=== PATIENT | female | born 1960 | race Hispanic/Latino ===

== ENCOUNTER 2017-10-10 12:18 | Emergency (ER) | payer SELFPAY ==
[2017-10-10] MEDS ORDERED: DIPHENHYDRAMINE 50 MG/ML VIAL ONE (14:23)
[2017-10-10] MEDS ORDERED: DEXAMETHASONE 10 MG/ML VIAL ONE (14:23)
[2017-10-10] MEDS ORDERED: NA CHLORIDE 0.9% 1,000 ML ONE (14:24)
--- NOTE | 2017-10-10 14:29 | RAD REPORT ---
EXAM DESCRIPTION: CT - Head Brain Wo Cont - 10/10/2017 2:21 pm CLINICAL HISTORY: Headache, right ear pain COMPARISON: None. TECHNIQUE: All CT scans are performed using dose optimization technique as appropriate and may inclu de automated exposure control or mA/KV adjustment according to patient size. FINDINGS: No intracranial hemorrhage, hydrocephalus or extra-axial fluid collection.Mild frontal bra in atrophy.No areas of brain edema or evidence of midline shift. The paranasal sinuses and mastoids are clear. The calvarium is intact. IMPRESSION: No acute intracranial abnormality.
[2017-10-10] MEDS ORDERED: METOCLOPRAMIDE 10 MG/2mL INJ ONE (15:07)
--- NOTE | 2017-10-10 15:39 | ER ---
Nurse's Notes [facility] Name: Denise Kiser Age: 57 yrs Sex: Female : 1960 Arrival Date: 10/10/2017 Time: 12:18 Bed 6 Private MD: Diagnosis: Headache;Nausea and vomiting;Otalgia, right ear Presentation: 10/10 12:48 Presenting complaint: Patient states: N/V, headache, and right ear pain since last hb night. Transition of care: patient was not received from another setting of care. Onset of symptoms was October 09, 2017. Care prior to arrival: None. 12:48 Method Of Arrival: Ambulatory 12:48 Acuity: LEONOR 3 hb Triage Assessment: 12:51 Headache History: The patient has had previous headaches and this one is similar to previous episodes. General: Appears in no apparent distress. uncomfortable, Behavior is calm, cooperative. Pain: Pain currently is 9 out of 10 on a pain scale. Pain began suddenly, 1 day ago. Also complains of nausea. Neuro: Level of Consciousness is awake, alert, obeys commands, Oriented to person, place, time, situation. Cardiovascular: Capillary refill < 3 seconds. Respiratory: Airway is patent Respiratory effort is even, unlabored, Respiratory pattern is regular, symmetrical. Historical: - Allergies: 12:50 No Known Allergies; hb - Home Meds: 12:50 None [Active]; hb - PMHx: 12:50 None; hb - PSHx: 12:50 None; hb - Immunization history:: Adult Immunizations up to date. - Social history:: Smoking status: Patient/guardian denies using tobacco. Screenin:14 Abuse screen: Denies threats or abuse. Nutritional screening: No deficits noted. la1 Tuberculosis screening: No symptoms or risk factors identified. Fall Risk None identified. Assessment: 14:13 General: Appears in no apparent distress. Behavior is calm, cooperative. Pain: la1 Complains of pain in scalp. Neuro: Level of Consciousness is awake, alert, obeys commands, Speech is normal, Facial symmetry appears normal. Cardiovascular: Capillary refill < 3 seconds Patient's skin is warm and dry. Respiratory: Airway is patent Respiratory effort is even, unlabored, Respiratory pattern is regular, symmetrical. GI: No signs and/or symptoms were reported involving the gastrointestinal system. Vital Signs: 12:50 BP 116 / 75; Pulse 61; Resp 16; Temp 98; Pulse Ox 99% on R/A; Pain 9/10; hb ED Course: 12:18 Patient arrived in ED. as 12:49 Triage completed. hb 12:50 Arm band placed on left wrist. hb 13:15 Darrell Wilder RN is Primary Nurse. la1 13:17 Florian Alvarez NP is PHCP. pm1 13:17 Maurilio Sánchez MD is Attending Physician. pm1 14:13 No provider procedures requiring assistance completed. Inserted saline lock: 22 gauge la1 in right antecubital area, using aseptic technique. 14:14 Call light in reach. Side rails up X 1. la1 14:21 CT completed. Patient moved to CT via wheelchair. Patient moved back from CT. jg1 14:21 CT Head Brain wo Cont In Process Unspecified. EDMS 16:10 IV discontinued, intact, bleeding controlled, No redness/swelling at site. Pressure ss dressing applied. Administered Medications: 14:12 Drug: NS 0.9% 1000 ml Route: IV; Rate: 1000 ml; Site: right antecubital; la1 15:49 Follow up: IV Status: Completed infusion la1 14:12 Drug: Decadron - Dexamethasone 10 mg Route: IVP; Site: right antecubital; la1 15:49 Follow up: Response: No adverse reaction la1 14:12 Drug: Benadryl 25 mg Route: IVP; Site: right antecubital; la1 15:49 Follow up: Response: No adverse reaction la1 15:05 Drug: Reglan 10 mg Route: IVP; Site: right antecubital; ss 15:49 Follow up: Response: No adverse reaction la1 Outcome: 15:38 Discharge ordered by MD. pm1 16:09 Discharged to home via wheelchair, with friend. ss 16:09 Condition: good 16:09 Discharge instructions given to patient, Instructed on discharge instructions, follow up and referral plans. medication usage, Demonstrated understanding of instructions, follow-up care, medications, Prescriptions given X 2. 16:12 Patient left the ED. ss Signatures: Dispatcher [employer] EDDC Enedina Cheung j Yudi Champagne Shelby, RN RN Darrell Wilder RN RN la1 Florian Alvarez [employer]OUNDER AND PRESIDENT [employer] AND PRESIDENT pm1 Micheline Barros, RN RN hb
--- NOTE | 2017-10-10 15:39 | EDPHYS ---
Physician Documentation [facility] Name: Denise Kiser Age: 57 yrs Sex: Female : 1960 Arrival Date: 10/10/2017 Time: 12:18 Bed 6 Private MD: ED Physician Maurilio Sánchez HPI: 10/10 15:00 This 57 yrs old Female presents to ER via Ambulatory with complaints of pm1 Headache, Nausea/Vomiting. 15:00 The patient complains of pain to the forehead. The patient describes the headache as pm1 aching. 15:00 Onset: The symptoms/episode began/occurred last night. Associated signs and symptoms: pm1 Pertinent positives: nausea, vomiting, Pertinent negatives: neck stiffness, weakness. Severity of symptoms: in the emergency department the pain is actually worse. Headache History: The patient has had previous headaches and this one is similar to previous episodes. The symptoms are alleviated by nothing. the symptoms are aggravated by nothing. The patient has experienced similar episodes in the past, multiple times. The patient has not recently seen a physician. Historical: - Allergies: 12:50 No Known Allergies; hb - Home Meds: 12:50 None [Active]; hb - PMHx: 12:50 None; hb - PSHx: 12:50 None; hb - Immunization history:: Adult Immunizations up to date. - Social history:: Smoking status: Patient/guardian denies using tobacco. ROS: 15:00 Constitutional: Negative for fever, chills, and weight loss, Eyes: Negative for injury, pm1 pain, redness, and discharge, ENT: Negative for injury, pain, and discharge, Neck: Negative for injury, pain, and swelling, Cardiovascular: Negative for chest pain, palpitations, and edema, Respiratory: Negative for shortness of breath, cough, wheezing, and pleuritic chest pain, Abdomen/GI: Negative for abdominal pain, nausea, vomiting, diarrhea, and constipation, Back: Negative for injury and pain, MS/Extremity: Negative for injury and deformity, Skin: Negative for injury, rash, and discoloration. 15:00 Neuro: Positive for headache, Negative for numbness, tingling, weakness. Exam: 15:00 Constitutional: This is a well developed, well nourished patient who is awake, alert, pm1 and in no acute distress. Head/Face: Normocephalic, atraumatic. Eyes: Pupils equal round and reactive to light, extra-ocular motions intact. Lids and lashes normal. Conjunctiva and sclera are non-icteric and not injected. Cornea within normal limits. Periorbital areas with no swelling, redness, or edema. ENT: Nares patent. No nasal discharge, no septal abnormalities noted. Tympanic membranes are normal and external auditory canals are clear. Oropharynx with no redness, swelling, or masses, exudates, or evidence of obstruction, uvula midline. Mucous membranes moist. Neck: Trachea midline, no thyromegaly or masses palpated, and no cervical lymphadenopathy. Supple, full range of motion without nuchal rigidity, or vertebral point tenderness. No Meningismus. Chest/axilla: Normal chest wall appearance and motion. Nontender with no deformity. No lesions are appreciated. Cardiovascular: Regular rate and rhythm with a normal S1 and S2. No gallops, murmurs, or rubs. Normal PMI, no JVD. No pulse deficits. Respiratory: Lungs have equal breath sounds bilaterally, clear to auscultation and percussion. No rales, rhonchi or wheezes noted. No increased work of breathing, no retractions or nasal flaring. Abdomen/GI: Soft, non-tender, with normal bowel sounds. No distension or tympany. No guarding or rebound. No evidence of tenderness throughout. Back: No spinal tenderness. No costovertebral tenderness. Full range of motion. Skin: Warm, dry with normal turgor. Normal color with no rashes, no lesions, and no evidence of cellulitis. MS/ Extremity: Pulses equal, no cyanosis. Neurovascular intact. Full, normal range of motion. 15:00 Neuro: Orientation: is normal, Mentation: is normal, Cranial nerves: CN II- XII are normal as tested, Cerebellar function: normal finger to nose testing, Motor: moves all fours, strength is normal, strength is 5/5 in all extremities, Sensation: is normal, no obvious gross deficits, Gait: is steady, at a normal pace, without difficulty. Vital Signs: 12:50 BP 116 / 75; Pulse 61; Resp 16; Temp 98; Pulse Ox 99% on R/A; Pain 9/10; hb MDM: 13:18 Patient medically screened. pm1 15:38 Data reviewed: vital signs. Data interpreted: Pulse oximetry: on room air is 99 %. pm1 Interpretation: normal. Counseling: I had a detailed discussion with the patient and/or guardian regarding: the historical points, exam findings, and any diagnostic results supporting the discharge/admit diagnosis, radiology results, the need for outpatient follow up, to return to the emergency department if symptoms worsen or persist or if there are any questions or concerns that arise at home. 10/10 14:48 Order name: Urine Dipstick--Ancillary (enter results); Complete Time: 15:52 bd 10/10 13:48 Order name: CT Head Brain wo Cont; Complete Time: 14:31 pm1 10/10 13:48 Order name: Urine Dipstick-Ancillary (obtain specimen); Complete Time: 14:50 pm1 10/10 13:48 Order name: Urine Test (obtain specimen); Complete Time: 14:50 pm1 Administered Medications: 14:12 Drug: NS 0.9% 1000 ml Route: IV; Rate: 1000 ml; Site: right antecubital; la1 15:49 Follow up: IV Status: Completed infusion la1 14:12 Drug: Decadron - Dexamethasone 10 mg Route: IVP; Site: right antecubital; la1 15:49 Follow up: Response: No adverse reaction la1 14:12 Drug: Benadryl 25 mg Route: IVP; Site: right antecubital; la1 15:49 Follow up: Response: No adverse reaction la1 15:05 Drug: Reglan 10 mg Route: IVP; Site: right antecubital; ss 15:49 Follow up: Response: No adverse reaction la1 Disposition: 18:40 Co-signature as Attending Physician, Maurilio Sánchez MD. rn Disposition: 10/10/17 15:38 Discharged to Home. Impression: Headache, Nausea and vomiting, Otalgia, right ear. - Condition is Stable. - Discharge Instructions: General Headache Without Cause, Nausea and Vomiting, Earache. - Prescriptions for Fiorinal 50- 325-40 mg Oral Capsule - take 1 capsule by ORAL route every 4 hours As needed - not to exceed 6 capsules per day; 20 capsule. Zofran 4 mg Oral Tablet - take 1 tablet by ORAL route every 8 hours As needed; 20 tablet. - Medication Reconciliation Form, Thank You Letter, Prescription Opioid Use form. - Follow up: Emergency Department; When: As needed; Reason: Worsening of condition. Follow up: Private Physician; When: 2 - 3 days; Reason: Recheck today's complaints, Continuance of care, Re-evaluation by your physician. - Problem is new. - Symptoms have improved. Signatures: Dispatcher [employer] EDMS Maurilio Sánchez MD MD rn Smirch, Shelby, RN RN ss Darrell Wilder RN RN la1 Florian Alvarez, RADHA [employer] pm1 Micheline Barros RN RN hb
[2017-10-10 15:40] LABS: Urine Blood 2+ (NEG); Urine Glucose NEGATIVE (NEG); Urine Protein NEGATIVE (NEG); Urine pH 6.5 (5.0-7.0)
[2017-10-10] MEDS ORDERED: LIDOCAINE 1% MPF 5 ML VIAL ONE (17:37)
== END 2017-10-10 16:12 | disposition home or self-care (01) ==
LOC: ER 12:18
DX: R11.2 Nausea with vomiting, unspecified (principal); H92.01 Otalgia, right ear
CPT/HCPCS: 70450; 81003; 96361; 96374; 96375; 99284; J1100; J2765; J7030

== ENCOUNTER 2017-12-01 20:51 | Emergency (ER) | payer SELFPAY ==
[2017-12-01] MEDS ORDERED: DIPHENHYDRAMINE 50 MG/ML VIAL ONE (22:30)
[2017-12-01] MEDS ORDERED: METOCLOPRAMIDE 10 MG/2mL INJ ONE (22:30)
[2017-12-01] MEDS ORDERED: KETOROLAC 30 MG/ML INJ ONE (22:31)
[2017-12-01] MEDS ORDERED: NA CHLORIDE 0.9% 1,000 ML ONE (22:31)
--- NOTE | 2017-12-01 23:56 | ER ---
Nurse's Notes [facility] Name: Denise Kiser Age: 57 yrs Sex: Female : 1960 Arrival Date: 12/01/2017 Time: 20:55 Bed 26 Private MD: Diagnosis: Migraine Presentation: 12/01 21:03 Presenting complaint: Patient states: Migraine x2 days, N/V; Patient unable to lp1 concentrate. Transition of care: patient was not received from another setting of care. Onset of symptoms was November 29, 2017. Risk Assessment: Do you want to hurt yourself or someone else? Patient reports no desire to harm self or others. Initial Sepsis Screen: Does the patient meet any 2 criteria? No. Patient's initial sepsis screen is negative. Does the patient have a suspected source of infection? No. Patient's initial sepsis screen is negative. Care prior to arrival: None. 21:03 Method Of Arrival: Ambulatory lp1 21:03 Acuity: LEONOR 3 lp1 Triage Assessment: 21:09 General: Appears uncomfortable, Behavior is crying. Pain: Complains of pain in head lp1 Pain currently is 10 out of 10 on a pain scale. GI: Reports nausea. Historical: - Allergies: 21:07 No Known Allergies; lp1 - Home Meds: 21:07 Klonopin Oral [Active]; lp1 21:08 Fluoxetine Oral [Active]; Trazodone Oral [Active]; lp1 - PMHx: 21:08 Anxiety; Depression; lp1 - PSHx: 21:08 None; lp1 - Immunization history:: Adult Immunizations up to date. - Social history:: Smoking status: Patient/guardian denies using tobacco. - Ebola Screening: : No symptoms or risks identified at this time. Screenin:04 Abuse screen: Denies threats or abuse. Denies injuries from another. Nutritional lp1 screening: No deficits noted. Tuberculosis screening: No symptoms or risk factors identified. Fall Risk None identified. Assessment: 22:50 General: Appears distressed, uncomfortable, slender, Behavior is cooperative, anxious, mb3 crying. Pain: Complains of pain in top of head, forehead, right caodaism and left caodaism. Neuro: No deficits noted. Level of Consciousness is awake, alert, obeys commands, Oriented to person, place, time, situation. Cardiovascular: No deficits noted. Respiratory: No deficits noted. GI: No deficits noted. Abdomen is flat, Bowel sounds present X 4 quads. Abd is soft and non tender Reports vomiting. : No deficits noted. No signs and/or symptoms were reported regarding the genitourinary system. EENT: No deficits noted. No signs and/or symptoms were reported regarding the EENT system. 23:35 Reassessment: Patient appears in no apparent distress at this time. No changes from mb3 previously documented assessment. Patient and/or family updated on plan of care and expected duration. Pain level reassessed. Patient is alert, oriented x 3, equal unlabored respirations, skin warm/dry/pink. Patient states feeling better. Vital Signs: 21:03 BP 114 / 71; Pulse 76; Resp 16; Temp 98.1(O); Pulse Ox 98% on R/A; Pain 10/10; lp1 22:47 BP 129 / 73; Pulse 58; Resp 16; Pulse Ox 100% on R/A; mb3 23:34 BP 117 / 65; Pulse 63; Resp 16; Pulse Ox 100% on R/A; mb3 ED Course: 20:55 Patient arrived in ED. al2 21:03 Triage completed. lp1 21:03 Arm band placed on left wrist. lp1 22:08 Basil Moran PA is PHCP. jr8 22:08 Maurilio Sánchez MD is Attending Physician. jr8 22:09 Melvin Cesar, BALTAZAR is Primary Nurse. mb3 22:50 Inserted saline lock: 22 gauge in right forearm, using aseptic technique. Blood mb3 collected. 12/02 00:06 No provider procedures requiring assistance completed. IV discontinued, intact, mb3 bleeding controlled, No redness/swelling at site. Pressure dressing applied. 00:07 Patient has correct armband on for positive identification. mb3 Administered Medications: 12/01 22:46 Drug: NS 0.9% 1000 ml Route: IV; Rate: 1000 ml; Site: right forearm; mb3 12/02 00:08 Follow up: IV Status: Completed infusion; IV Intake: 1000ml mb3 00:08 Follow up: Response: No adverse reaction mb3 12/01 22:46 Drug: Reglan 10 mg Route: IVP; Site: right forearm; mb3 12/02 00:07 Follow up: Response: No adverse reaction; Pain is decreased mb3 12/01 22:46 Drug: Benadryl 25 mg Route: IVP; Site: right forearm; mb3 12/02 00:07 Follow up: Response: No adverse reaction mb3 12/01 22:46 Drug: TORadol 30 mg Route: IVP; Site: right forearm; mb3 12/02 00:07 Follow up: Response: No adverse reaction mb3 Intake: 00:08 IV: 1000ml; Total: 1000ml. mb3 Outcome: 12/01 23:55 Discharge ordered by MD. barnes 12/02 00:06 Discharged to home ambulatory, with family. mb3 Condition: stable Discharge instructions given to patient, Instructed on discharge instructions, follow up and referral plans. Demonstrated understanding of instructions, follow-up care. 00:08 Patient left the ED. mb3 Signatures: Jen Daigle RN RN lp1 Basil Moran PA PA jr8 Scarlet Bravo Mark, RN RN mb3
--- NOTE | 2017-12-01 23:56 | EDPHYS ---
Physician Documentation [facility] Name: Denise Kiser Age: 57 yrs Sex: Female : 1960 Arrival Date: 12/01/2017 Time: 20:55 Bed 26 Private MD: ED Physician Maurilio Sánchez HPI: 12/01 22:27 This 57 yrs old Female presents to ER via Ambulatory with complaints of jr8 MIGRAINE HEADACHE, Vomiting. 22:27 The patient complains of pain to the forehead. The patient describes the headache as jr8 throbbing. Onset: The symptoms/episode began/occurred acutely, today. Associated signs and symptoms: Pertinent positives: Photophobia vomiting. Severity of symptoms: At its worst the pain was moderate, in the emergency department the pain is unchanged. The symptoms are alleviated by nothing. the symptoms are aggravated by lights, movement, noise. The patient has experienced similar episodes in the past, a few times. The patient has not recently seen a physician. history of migraines per patient . Historical: - Allergies: 21:07 No Known Allergies; lp1 - Home Meds: 21:07 Klonopin Oral [Active]; lp1 21:08 Fluoxetine Oral [Active]; Trazodone Oral [Active]; lp1 - PMHx: 21:08 Anxiety; Depression; lp1 - PSHx: 21:08 None; lp1 - Immunization history:: Adult Immunizations up to date. - Social history:: Smoking status: Patient/guardian denies using tobacco. - Ebola Screening: : No symptoms or risks identified at this time. ROS: 22:27 Eyes: Negative for injury, pain, redness, and discharge, ENT: Negative for injury, jr8 pain, and discharge, Neck: Negative for injury, pain, and swelling, Cardiovascular: Negative for chest pain, palpitations, and edema, Respiratory: Negative for shortness of breath, cough, wheezing, and pleuritic chest pain, Abdomen/GI: Negative for abdominal pain, nausea, vomiting, diarrhea, and constipation, Back: Negative for injury and pain, MS/Extremity: Negative for injury and deformity, Skin: Negative for injury, rash, and discoloration. 22:27 Neuro: Positive for headache, Negative for altered mental status, dizziness, gait disturbance, hearing loss, loss of consciousness, numbness, seizure activity, speech changes, syncope, near syncope, tingling, tinnitus, tremor, visual changes, weakness. Exam: 22:27 Eyes: Pupils equal round and reactive to light, extra-ocular motions intact. Lids and jr8 lashes normal. Conjunctiva and sclera are non-icteric and not injected. Cornea within normal limits. Periorbital areas with no swelling, redness, or edema. ENT: Nares patent. No nasal discharge, no septal abnormalities noted. Tympanic membranes are normal and external auditory canals are clear. Oropharynx with no redness, swelling, or masses, exudates, or evidence of obstruction, uvula midline. Mucous membranes moist. Neck: Trachea midline, no thyromegaly or masses palpated, and no cervical lymphadenopathy. Supple, full range of motion without nuchal rigidity, or vertebral point tenderness. No Meningismus. Cardiovascular: Regular rate and rhythm with a normal S1 and S2. No gallops, murmurs, or rubs. Normal PMI, no JVD. No pulse deficits. Respiratory: Lungs have equal breath sounds bilaterally, clear to auscultation and percussion. No rales, rhonchi or wheezes noted. No increased work of breathing, no retractions or nasal flaring. Abdomen/GI: Soft, non-tender, with normal bowel sounds. No distension or tympany. No guarding or rebound. No evidence of tenderness throughout. Back: No spinal tenderness. No costovertebral tenderness. Full range of motion. Skin: Warm, dry with normal turgor. Normal color with no rashes, no lesions, and no evidence of cellulitis. MS/ Extremity: Pulses equal, no cyanosis. Neurovascular intact. Full, normal range of motion. Neuro: Awake and alert, GCS 15, oriented to person, place, time, and situation. Cranial nerves II-XII grossly intact. Motor strength 5/5 in all extremities. Sensory grossly intact. Cerebellar exam normal. Normal gait. Vital Signs: 21:03 BP 114 / 71; Pulse 76; Resp 16; Temp 98.1(O); Pulse Ox 98% on R/A; Pain 10/10; lp1 22:47 BP 129 / 73; Pulse 58; Resp 16; Pulse Ox 100% on R/A; mb3 23:34 BP 117 / 65; Pulse 63; Resp 16; Pulse Ox 100% on R/A; mb3 MDM: 22:08 Patient medically screened. jr8 23:54 Data reviewed: vital signs, nurses notes, and as a result, I will discharge patient. jr8 Data interpreted: Pulse oximetry: on room air is 100 %. Interpretation: normal. Counseling: I had a detailed discussion with the patient and/or guardian regarding: the historical points, exam findings, and any diagnostic results supporting the discharge/admit diagnosis, the need for outpatient follow up, a family practitioner, to return to the emergency department if symptoms worsen or persist or if there are any questions or concerns that arise at home. Response to treatment: the patient's symptoms have resolved after treatment. 12/01 22:25 Order name: IV; Complete Time: 22:47 jr8 Administered Medications: 22:46 Drug: NS 0.9% 1000 ml Route: IV; Rate: 1000 ml; Site: right forearm; mb3 12/02 00:08 Follow up: IV Status: Completed infusion; IV Intake: 1000ml mb3 00:08 Follow up: Response: No adverse reaction 3 12/01 22:46 Drug: Reglan 10 mg Route: IVP; Site: right forearm; mb3 12/02 00:07 Follow up: Response: No adverse reaction; Pain is decreased mb3 12/01 22:46 Drug: Benadryl 25 mg Route: IVP; Site: right forearm; mb3 12/02 00:07 Follow up: Response: No adverse reaction 3 12/01 22:46 Drug: TORadol 30 mg Route: IVP; Site: right forearm; mb3 12/02 00:07 Follow up: Response: No adverse reaction mb3 Disposition: 06:47 Co-signature as Attending Physician, Maurilio Sánchez MD. rn Disposition: 12/01/17 23:55 Discharged to Home. Impression: Migraine. - Condition is Stable. - Discharge Instructions: Migraine Headache. - Medication Reconciliation Form, Thank You Letter, Antibiotic Education, Prescription Opioid Use form. - Follow up: Private Physician; When: 2 - 3 days; Reason: Recheck today's complaints, Continuance of care, Re-evaluation by your physician. - Problem is new. - Symptoms are resolved. Signatures: Maurilio Snáchez MD MD rn Pena, Laura RN RN lp1 Basil Moran PA PA jr8 Cesar, Melvin, RN RN mb3 Corrections: (The following items were deleted from the chart) 00:08 12/01 23:55 12/01/2017 23:55 Discharged to Home. Impression: Migraine. Condition is mb3 Stable. Forms are Medication Reconciliation Form, Thank You Letter, Antibiotic Education, Prescription Opioid Use. Follow up: Private Physician; When: 2 - 3 days; Reason: Recheck today's complaints, Continuance of care, Re-evaluation by your physician. Problem is new. Symptoms are resolved. jr8
== END 2017-12-02 00:08 | disposition home or self-care (01) ==
LOC: ER 20:51
DX: G43.909 Migraine, unspecified, not intractable, without status migrainosus (principal); F41.9 Anxiety disorder, unspecified; F32.9 Major depressive disorder, single episode, unspecified
CPT/HCPCS: 96361; 96374; 96375; 99283; J2765; J7030

== ENCOUNTER 2018-02-03 18:50 | Emergency (ER) | payer SELFPAY ==
[2018-02-03] MEDS ORDERED: MAGNE/ALUM HYDROXD 30 ML UCUP ONE (19:27)
[2018-02-03 19:43] LABS: Absolute Lymphocytes (CBC) 1.6 K/uL (0.7-4.9); Absolute Monocytes 0.5 K/uL (0.1-1.3); Absolute Neutrophil 3.8 K/uL (1.8-8.0); Basophils % 0.5 % (0-1.3); Eosinophils % 2.1 % (0-4.4); Lymphocytes % 26.8 % (15.3-44.8); MCV 88.8 fL (80-100); MPV 7.5 fL (7.6-11.3); Monocytes % 8.6 % (3.3-12.3); RBC Red Blood Cell Count 3.38 M/uL (3.86-4.86)
[2018-02-03] MEDS ORDERED: MORPHINE 4 MG/ML SYR ONE (20:06)
[2018-02-03] MEDS ORDERED: ONDANSETRON 4 MG/2 ML VIAL ONE (20:06)
[2018-02-03 20:10] LABS: Albumin 3.7 g/dL (3.4-5.0); Bilirubin Total 0.2 mg/dL (0.2-1.0); Protein, Total 7.1 g/dL (6.4-8.2)
--- NOTE | 2018-02-03 20:47 | RAD REPORT ---
EXAM DESCRIPTION: CT - Abdomen Pelvis W Contrast - 02/03/2018 8:30 pm CLINICAL HISTORY: Abdominal pain with nausea. COMPARISON: none. TECHNIQUE: Computed axial tomography of the abdomen pelvis was obtained. 100 cc Isovue-300 was admin istered intravenously. Oral contrast was not requested which limits evaluation of bowel. All CT scans are performed using dose optimization technique as appropriate and may include automated exposure control or mA/KV adjustment according to patient size. FINDINGS: A 15 millimeters cyst is present within the left lobe of the liver. Spleen, pancreas, adrenal and kidneys appear unremarkable. There is no evidence of diverticulitis. The proximal appendix is borderline dilated. The mid and distal appendix are normal caliber and conta ins air. Stranding is not seen adjacent to the appendix. An adnexal mass is not visualized. IMPRESSION: Borderline dilatation of proximal appendix. Given that the remainder of the appendix is normal my suspicion for appendicitis is low. However, if the patient continues to exhibit symptoms of appendicitis then a follow up CT scan would be recommended.
--- NOTE | 2018-02-03 21:03 | ER ---
Nurse's Notes [facility] Name: Denise Kiser Age: 57 yrs Sex: Female : 1960 Arrival Date: 02/03/2018 Time: 18:52 Bed 8 Private MD: None, None Diagnosis: peptic ulcer;epigastric pain Presentation: 02/03 19:06 Presenting complaint: Patient states: RLQ abd pain, nausea. Transition of care: patient sg was not received from another setting of care. Onset of symptoms was February 03, 2018. Risk Assessment: Do you want to hurt yourself or someone else? Patient reports no desire to harm self or others. Initial Sepsis Screen: Does the patient meet any 2 criteria? Yes Does the patient have a suspected source of infection? No. Patient's initial sepsis screen is negative. Care prior to arrival: None. 19:06 Method Of Arrival: Ambulatory sg 19:06 Acuity: LEONOR 3 sg Historical: - Allergies: 19:07 No Known Allergies; sg - Home Meds: 21:24 None [Active]; ao - PMHx: 19:07 Anxiety; Depression; sg 21:24 hitial hernia; ao - PSHx: 19:07 None; sg - Immunization history:: Adult Immunizations up to date. - Social history:: Smoking status: unknown. - Ebola Screening: : Patient negative for fever greater than or equal to 101.5 degrees Fahrenheit, and additional compatible Ebola Virus Disease symptoms Patient denies exposure to infectious person Patient denies travel to an Ebola-affected area in the 21 days before illness onset No symptoms or risks identified at this time. Screenin:22 Abuse screen: Denies threats or abuse. Denies injuries from another. Nutritional ao screening: No deficits noted. Tuberculosis screening: No symptoms or risk factors identified. Fall Risk None identified. Assessment: 19:38 General: Appears in no apparent distress. comfortable, Behavior is calm, cooperative, ao appropriate for age. Pain: Complains of pain in epigastric area Pain does not radiate. Neuro: Level of Consciousness is awake, alert, Oriented to person, place, time, situation, Appropriate for age Speech is normal, Facial symmetry appears normal. Cardiovascular: Capillary refill < 3 seconds Patient's skin is warm and dry. 19:38 Reassessment: Patient appears in no apparent distress at this time. Patient is alert, ao oriented x 3, equal unlabored respirations, skin warm/dry/pink. Patient is alert/active/playful, equal unlabored respirations, skin warm/dry/pink. 21:24 GI: Bowel sounds present X 4 quads. Abd is soft and non tender Abd is soft. : No ao signs and/or symptoms were reported regarding the genitourinary system. Derm: Skin is intact, Skin is pink, warm \T\ dry. normal, Skin temperature is warm. 21:26 Reassessment: Dc instructions given to patient. patient agree with the POC and to ao follow up with Dr Chavarria. Vital Signs: 19:07 BP 152 / 86; Pulse 76 MON; Resp 17; Temp 98.2; Pulse Ox 97% on R/A; Pain 10/10; sg 20:30 BP 142 / 82; Pulse 88; Resp 16; Pulse Ox 100% on R/A; Pain 0/10; ao 21:27 BP 138 / 56; Pulse 72; Resp 16; Pulse Ox 100% ; Pain 0/10; ao ED Course: 18:52 Patient arrived in ED. sb2 18:53 None, None is Private Physician. sb2 19:07 Triage completed. sg 19:07 Duarte Garcia MD is Attending Physician. ps1 19:07 Arm band placed on. sg 19:19 Ej Matthew, RN is Primary Nurse. ao 19:19 Radiology exam delayed due to lab results not completed at this time. (BUN/Creatinine). vm2 19:42 Radiology exam delayed due to lab results not completed at this time. (BUN/Creatinine). vm2 20:00 Inserted saline lock: 20 gauge in left forearm, using aseptic technique. Blood ao collected. 20:[address] nj 20:29 CT completed. Patient tolerated procedure well. Patient moved back from CT. nj 20:30 CT Abd/Pelvis - W/Contrast In Process Unspecified. EDMS 21:02 Corey Luna MD is Referral Physician. ps1 21:22 No provider procedures requiring assistance completed. IV discontinued, intact, ao bleeding controlled, No redness/swelling at site. Pressure dressing applied. 21:23 Patient has correct armband on for positive identification. Pulse ox on. NIBP on. ao Administered Medications: 19:37 Drug: GI Cocktail with - (Phenobarbital-Belladonna 10 ml, Maalox Suspension 30 ao ml, Lidocaine Liquid 2 % 20 ml) Route: PO; 22:18 Follow up: Response: No adverse reaction ao 20:07 Drug: Zofran 4 mg Route: IVP; Site: left forearm; ao 22:19 Follow up: Response: No adverse reaction ao 20:07 Drug: morphine 4 mg Route: IVP; Site: left forearm; ao 21:00 Follow up: Response: No adverse reaction ao 20:10 CANCELLED (Duplicate Order): morphine 4 mg IM once ao Outcome: 21:03 Discharge ordered by . ps1 21:27 Discharged to home ambulatory. ao 21:27 Condition: stable 21:27 Discharge instructions given to patient, Instructed on discharge instructions, Demonstrated understanding of instructions, follow-up care, medications, Prescriptions given X 4. 21:28 Patient left the ED. ao Signatures: Dispatcher [employer] EDMS Severino Angeles RN RN Ej Matthew RN RN ao Jordan, Nathan nj McGuire, Victoria 2 Duarte Garcia MD MD ps1 Claier Armas sb2
--- NOTE | 2018-02-03 21:03 | EDPHYS ---
Physician Documentation [facility] Name: Denise Kiser Age: 57 yrs Sex: Female : 1960 Arrival Date: 02/03/2018 Time: 18:52 Bed 8 Private MD: None, None ED Physician Duarte Garcia HPI: 02/03 19:31 This 57 yrs old Female presents to ER via Ambulatory with complaints of ps1 Abdominal Pain. 19:31 Pain is localized to the epigastrum. Rated as moderate to severe. Hx of same 2/2 ps1 h.pylori and gastritis. Took bentyl and famotidine [employer]. Was treated in [place] for same but moved to [place] a couple of months ago. Was treated with quad therapy for h pylori. Pain same as previous episodes. Last EGD 5 years ago. . Historical: - Allergies: 19:07 No Known Allergies; sg - Home Meds: 21:24 None [Active]; ao - PMHx: 19:07 Anxiety; Depression; sg 21:24 hitial hernia; ao - PSHx: 19:07 None; sg - Immunization history:: Adult Immunizations up to date. - Social history:: Smoking status: unknown. - Ebola Screening: : Patient negative for fever greater than or equal to 101.5 degrees Fahrenheit, and additional compatible Ebola Virus Disease symptoms Patient denies exposure to infectious person Patient denies travel to an Ebola-affected area in the 21 days before illness onset No symptoms or risks identified at this time. ROS: 19:31 Constitutional: Negative for fever, chills, and weight loss, Eyes: Negative for injury, ps1 pain, redness, and discharge, Cardiovascular: Negative for chest pain, palpitations, and edema, Respiratory: Negative for shortness of breath, cough, wheezing, and pleuritic chest pain, Back: Negative for injury and pain, MS/Extremity: Negative for injury and deformity, Skin: Negative for injury, rash, and discoloration, Neuro: Negative for headache, weakness, numbness, tingling, and seizure. 19:31 Abdomen/GI: Positive for abdominal pain, nausea and vomiting. Exam: 19:31 Constitutional: This is a well developed, well nourished patient who is awake, alert, ps1 and in no acute distress. Head/Face: Normocephalic, atraumatic. Eyes: Pupils equal round and reactive to light, extra-ocular motions intact. Lids and lashes normal. Conjunctiva and sclera are non-icteric and not injected. Chest/axilla: Normal chest wall appearance and motion. Nontender with no deformity. No lesions are appreciated. Cardiovascular: Regular rate and rhythm. No gallops, murmurs, or rubs. Normal PMI, no JVD. No pulse deficits. Respiratory: Lungs have equal breath sounds bilaterally, clear to auscultation and percussion. No rales, rhonchi or wheezes noted. No increased work of breathing, no retractions or nasal flaring. Skin: Warm, dry with normal turgor. Normal color with no rashes, no lesions, and no evidence of cellulitis. 19:31 Abdomen/GI: Inspection: abdomen appears normal, Bowel sounds: normal, Palpation: moderate abdominal tenderness, in the epigastric area. Vital Signs: 19:07 BP 152 / 86; Pulse 76 MON; Resp 17; Temp 98.2; Pulse Ox 97% on R/A; Pain 10/10; sg 20:30 BP 142 / 82; Pulse 88; Resp 16; Pulse Ox 100% on R/A; Pain 0/10; ao 21:27 BP 138 / 56; Pulse 72; Resp 16; Pulse Ox 100% ; Pain 0/10; ao MDM: 19:45 Patient medically screened. ps1 08 19:16 Order name: CBC with Diff; Complete Time: 19:45 ps1 02/03 19:16 Order name: Lipase; Complete Time: 20:29 ps1 02/03 19:16 Order name: CMP; Complete Time: 20:29 [facility] 02/03 19:16 Order name: CT Abd/Pelvis - W/Contrast; Complete Time: 20:48 ps1 02/03 19:16 Order name: IV Saline Lock; Complete Time: 19:37 ps1 02/03 19:16 Order name: Labs collected and sent; Complete Time: 19:37 ps1 Administered Medications: 19:37 Drug: GI Cocktail with - (Phenobarbital-Belladonna 10 ml, Maalox Suspension 30 ao ml, Lidocaine Liquid 2 % 20 ml) Route: PO; 22:18 Follow up: Response: No adverse reaction ao 20:07 Drug: Zofran 4 mg Route: IVP; Site: left forearm; ao 22:19 Follow up: Response: No adverse reaction ao 20:07 Drug: morphine 4 mg Route: IVP; Site: left forearm; ao 21:00 Follow up: Response: No adverse reaction ao 20:10 CANCELLED (Duplicate Order): morphine 4 mg IM once ao Disposition: 02/03/18 21:03 Discharged to Home. Impression: peptic ulcer, epigastric pain. - Condition is Stable. - Discharge Instructions: Peptic Ulcer. - Prescriptions for Carafate 1 gram Oral Tablet - take 1 tablet by ORAL route 4 times per day take on an empty stomach, beginning on waking and last dose at bedtime; 100 tablet. Protonix 40 mg Oral Tablet - take 1 tablet by ORAL route once daily; 30 tablet. Tylenol- Codeine #3 300-30 mg Oral Tablet - take 2 tablet by ORAL route every 6 hours As needed; 6 tablet. Zofran 4 mg Oral Tablet - take 1 tablet by ORAL route every 12 hours As needed; 20 tablet. - Medication Reconciliation Form, Thank You Letter, Antibiotic Education, Prescription Opioid Use form. - Follow up: Corey Luna MD; When: 1 week; Reason: Recheck today's complaints, Continuance of care, Re-evaluation by your physician. Follow up: Emergency Department; When: As needed; Reason: Worsening of condition. - Problem is chronic. - Symptoms have worsened. Signatures: Dispatcher [employer] EDMS Severino Angeles RN RN Ej Matthew RN RN Duarte Palacios MD MD ps1 Corrections: (The following items were deleted from the chart) 20:10 20:09 morphine 4 mg IM once ordered. ao ao 21:28 21:03 02/03/2018 21:03 Discharged to Home. Impression: peptic ulcer; epigastric pain. ao Condition is Stable. Forms are Medication Reconciliation Form, Thank You Letter, Antibiotic Education, Prescription Opioid Use. Follow up: Corey Luna; When: 1 week; Reason: Recheck today's complaints, Continuance of care, Re-evaluation by your physician. Follow up: Emergency Department; When: As needed; Reason: Worsening of condition. Problem is chronic. Symptoms have worsened. ps1
== END 2018-02-03 21:28 | disposition home or self-care (01) ==
LOC: ER 18:50
DX: K27.9 Peptic ulcer, site unspecified, unspecified as acute or chronic, without hemorrhage or perforation (principal)
CPT/HCPCS: 36415; 74177; 80053; 83690; 85025; 96374; 96375; 99284; J2405; Q9967